=== PATIENT | female | born 1985 | race Caucasian/White ===

== ENCOUNTER 2016-12-15 18:49 | Inpatient (IN) | payer MEDICAID ==
[~2016-12-15] VITALS: Ht 165.1 cm; Wt 78.1 kg
[2016-12-15] MEDS ORDERED: MORPHINE SULFATE INJ 4 MG/ML DISP.SYRIN ONE ×2 (19:45→21:20)
[2016-12-15] MEDS ORDERED: IV SET PRIMARY 1 EA INFUS.SET MC ONE (19:46)
[2016-12-15] MEDS ORDERED: IV NS 0.9% 1,000 ML ONE (19:46)
[2016-12-15] MEDS ORDERED: ONDANSETRON HCL/PF 4 MG/2 ML VIAL ONE (19:46)
[2016-12-15 19:59] LABS: LYMPHOCYTES # (AUTO) 2.4 /CMM (0.8-4.8); MONOCYTES # (AUTO) 0.4 /CMM (0.1-1.30)
[2016-12-15 20:00] LABS: APPEARANCE,URINE Clear (CLEAR); BILIRUBIN,URINE Negative (NEGATIVE); BLOOD, URINE Negative Ery/uL (NEGATIVE); COLOR,URINE Yellow (YELLOW); KETONES,URINE Negative (NEGATIVE); LEUKOCYTE ESTERASE ,URINE Trace (NEGATIVE); NITRITE, URINE Negative (NEGATIVE); PROTEIN,URINE Negative (NEGATIVE); UGLUCOSE Negative (NEGATIVE)
[2016-12-15] MEDS ORDERED: ONDANSETRON HCL/PF 4 MG/2 ML VIAL IVP ONE (20:00)
[2016-12-15] MEDS ORDERED: IV NS 0.9% 1,000 ML BAG IV ONE (20:00)
[2016-12-15] MEDS ORDERED: MORPHINE SULFATE INJ 2 MG/ML DISP.SYRIN IV ONE ×2 (20:00→21:30)
[2016-12-15 20:01] LABS: CALCIUM, SERUM 8.2 mg/dL (8.5-10.1); CREATININE 0.7 mg/dL (0.6-1.3); POTASSIUM 4.2 mmol/L (3.5-5.1)
[2016-12-15 20:06] LABS: BASOPHILS % (AUTO) 0.6 % (0.0-2.0); EOSINOPHILS % (AUTO) 0.5 % (0.0-6.0); HEMATOCRIT 31 % (33-45); HEMOGLOBIN 9.2 g/dL (11.5-14.8); LYMPHOCYTES % (AUTO) 39.3 % (20.0-44.0); MEAN CORPUSCULAR HEMOGLOBIN 19 PG (26.0-33.0); MEAN CORPUSCULAR HGB CONC 30 g/dl (31.0-36.0); MEAN CORPUSCULAR VOLUME 63 fL (82-100); MONOCYTES % (AUTO) 7.4 % (2.0-12.0); NEUTROPHILS # (AUTO) 3.3 /CMM (1.8-8.9); NEUTROPHILS % (AUTO) 52.2 % (43.0-81.0); PLATELET COUNT (AUTO) 389 /CMM (150-450); RDW COEFFICIENT OF VARIATION 20.3 (11.5-15.0); RED BLOOD CELL COUNT(AUTO) 4.86 MIL/uL (4.0-5.2); WHITE BLOOD COUNT (AUTO) 6.1 K/uL (4.3-11.0)
[2016-12-15 20:08] LABS: ALBUMIN 3.5 g/dL (3.4-5.0); BILIRUBIN,DIRECT 0.1 mg/dL (0.0-0.2); BILIRUBIN,TOTAL 0.3 mg/dL (0.2-1.0); INR 0.98 (0.87-1.13); PROTHROMBIN TIME 10.2 SECS (9.5-12.7); TOTAL PROTEIN, SERUM 7.7 g/dL (6.4-8.2)
[2016-12-15] MEDS ORDERED: IV NS 0.9% 250 ML IV ONE (20:11)
[2016-12-15] MEDS ORDERED: IOHEXOL-300 100 ML VIAL IV ONE (20:11)
[2016-12-15 20:20] LABS: ADD URINE CULTURE NO; BACTERIA,URINE None seen /HPF (None Seen); RBC,URINE 0-2 /HPF (0-2); SQUAMOUS EPITHELIAL CELL,UR Few /HPF (None Seen)
[2016-12-15 20:34] LABS: PREGNANCY TEST URINE QUAL NEGATIVE (NEGATIVE)
[2016-12-15] MEDS ORDERED: LEVOFLOXACIN 500 MG /D5W 100ML 500 MG/100 ML PIGGYBACK IV ONE (22:00)
[2016-12-15] MEDS ORDERED: HYDROMORPHONE 1 MG/1 ML DISP.SYRIN IV ONE (22:00)
[2016-12-15] MEDS ORDERED: FLAGYL/NS RTU 500 MG/100 ML PIGGYBACK IV ONE (22:00)
[2016-12-15] MEDS ORDERED: ZOLPIDEM TARTRATE 5 MG TABLET PO PRN (23:00)
[2016-12-15] MEDS ORDERED: Z GUARD REMEDY 2 OZ OINT TP PRN (23:00)
[2016-12-15] MEDS ORDERED: ONDANSETRON HCL/PF 4 MG/2 ML VIAL IVP PRN (23:00)
[2016-12-15] MEDS ORDERED: HYDROCODONE/APAP 5/325MG 1 EACH TABLET PO PRN (23:00)
[2016-12-15] MEDS ORDERED: MAG HYDROX/AL HYDROX/SIMETH 30 ML UDC PO PRN (23:00)
[2016-12-15] MEDS ORDERED: MAGNESIUM HYDROXIDE 30 ML UDC PO PRN (23:00)
[2016-12-15] MEDS ORDERED: ACETAMINOPHEN 325 MG TABLET PO PRN (23:00)
[2016-12-16] VITALS (8 sets, daily range): BP systolic 117–135; BP diastolic 70–81
[2016-12-16] MEDS ORDERED: METRONIDAZOLE 500MG/ NS 100ML 100 ML IV ONE ×2 (00:31→07:12)
[2016-12-16] MEDS ORDERED: LEVOFLOXACIN 750 MG /D5W 150ML 150 ML IV ONE (00:32)
[2016-12-16] MEDS ORDERED: IV NS 0.9% 1,000 ML ONE (00:36)
[2016-12-16] MEDS ORDERED: IV SET PRIMARY PUMP SET 1 EA INFUS.SET MC ONE ×3 (00:36→12:10)
[2016-12-16] MEDS ORDERED: SECONDARY IV SET 1 EA INFUS.SET MC ONE ×2 (00:37→11:55)
[2016-12-16] MEDS: IV NS 0.9% 1,000 ML IV PRN (00:42)
[2016-12-16] MEDS: LEVOFLOXACIN 750 MG /D5W 150ML 750 MG in PREMIX 1 EA IV SCH ×2 (00:48→22:07)
[2016-12-16] MEDS ORDERED: MORPHINE SULFATE INJ 2 MG/ML DISP.SYRIN ONE ×2 (01:35→05:42)
[2016-12-16] MEDS: MORPHINE SULFATE INJ 2 MG/ML DISP.SYRIN IV PRN ×3 (01:43→09:47)
[2016-12-16] MEDS ORDERED: LEVE500T9 PO (02:01)
[2016-12-16] MEDS ORDERED: ALPR2TAB2 PO (02:01)
[2016-12-16] MEDS ORDERED: GABA800T2 PO (02:01)
[2016-12-16] MEDS ORDERED: ESCI20TA PO (02:01)
[2016-12-16] MEDS ORDERED: ONDA8TAB6 PO (02:04)
[2016-12-16] MEDS: METRONIDAZOLE 500MG/ NS 100ML 500 MG in PREMIX 1 EA IV SCH ×4 (02:20→17:25)
[2016-12-16 06:46] LABS: BASOPHILS % (AUTO) 0.2 % (0.0-2.0); EOSINOPHILS % (AUTO) 0.8 % (0.0-6.0); HEMATOCRIT 26 % (33-45); HEMOGLOBIN 8.1 g/dL (11.5-14.8); LYMPHOCYTES # (AUTO) 1.8 /CMM (0.8-4.8); LYMPHOCYTES % (AUTO) 31.1 % (20.0-44.0); MEAN CORPUSCULAR HEMOGLOBIN 19 PG (26.0-33.0); MEAN CORPUSCULAR HGB CONC 31 g/dl (31.0-36.0); MEAN CORPUSCULAR VOLUME 63 fL (82-100); MONOCYTES # (AUTO) 0.5 /CMM (0.1-1.30); NEUTROPHILS # (AUTO) 3.5 /CMM (1.8-8.9); NEUTROPHILS % (AUTO) 58.9 % (43.0-81.0); PLATELET COUNT (AUTO) 357 /CMM (150-450); RDW COEFFICIENT OF VARIATION 21.2 (11.5-15.0); RED BLOOD CELL COUNT(AUTO) 4.18 MIL/uL (4.0-5.2); WHITE BLOOD COUNT (AUTO) 5.9 K/uL (4.3-11.0)
[2016-12-16 06:58] LABS: RETICULOCYTE COUNT 1.6 % (0.6-2.5)
[2016-12-16] MEDS ORDERED: LEVONORGESTREL 1.5 MG PO ×2 (07:00)
[2016-12-16 07:10] LABS: CALCIUM, SERUM 8.2 mg/dL (8.5-10.1); CREATININE 0.6 mg/dL (0.6-1.3); MAGNESIUM 1.6 mg/dL (1.8-2.4); POTASSIUM 3.9 mmol/L (3.5-5.1)
[2016-12-16] MEDS ORDERED: HYDROMORPHONE 1 MG/1 ML DISP.SYRIN ONE (07:13)
[2016-12-16 07:23] LABS: THYROID STIMULATING HORMONE 0.713 uIU/mL (0.358-3.74)
[2016-12-16] MEDS ORDERED: OXYC30TA2 PO (07:40)
[2016-12-16] MEDS: PANTOPRAZOLE 40 MG TABLET.DR PO SCH (08:34)
[2016-12-16] MEDS: ALPRAZOLAM 1 MG TABLET PO SCH (12:06)
[2016-12-16] MEDS: GABAPENTIN 400 MG CAPSULE PO SCH ×2 (12:07→17:25)
[2016-12-16] MEDS: LEVETIRACETAM (250 MG) 250 MG TABLET PO SCH ×2 (12:07→21:34)
[2016-12-16] MEDS: oxyCODONE HCL SR 10MG TAB.SR.12H PO PRN (12:08)
[2016-12-16] MEDS: Magnesium 1GM/D5W 100ML PREMIX 100 ML IV SCH ×2 (12:08→13:28)
[2016-12-16] MEDS: HYDROMORPHONE 1 MG/1 ML DISP.SYRIN IV PRN ×2 (13:28→19:55)
[2016-12-16] MEDS: SOD FERRIC GLUC 125 MG in IV NS 0.9% 100 ML IV SCH (14:39)
[2016-12-16] MEDS: ONDANSETRON HCL/PF 4 MG/2 ML VIAL IVP PRN (19:56)
[2016-12-16] MEDS ORDERED: oxyCODONE HCL SR 10MG TAB.SR.12H PO PRN (21:00)
[2016-12-17] MEDS: oxyCODONE HCL SR 10MG TAB.SR.12H PO PRN ×4 (00:13→16:23)
[2016-12-17] MEDS: METRONIDAZOLE 500MG/ NS 100ML 500 MG in PREMIX 1 EA IV SCH ×3 (00:13→12:46)
[2016-12-17] MEDS: HYDROMORPHONE 1 MG/1 ML DISP.SYRIN IV PRN ×3 (01:59→15:03)
[2016-12-17] MEDS: IV NS 0.9% 1,000 ML IV PRN (05:28)
[2016-12-17] MEDS: ONDANSETRON HCL/PF 4 MG/2 ML VIAL IVP PRN (05:39)
[2016-12-17 06:21] LABS: BASOPHILS % (AUTO) 0.3 % (0.0-2.0); EOSINOPHILS # (AUTO) 0.1 /CMM (0.0-0.7); EOSINOPHILS % (AUTO) 1.8 % (0.0-6.0); HEMATOCRIT 26 % (33-45); LYMPHOCYTES # (AUTO) 1.6 /CMM (0.8-4.8); LYMPHOCYTES % (AUTO) 34.2 % (20.0-44.0); MEAN CORPUSCULAR HEMOGLOBIN 19 PG (26.0-33.0); MEAN CORPUSCULAR HGB CONC 30 g/dl (31.0-36.0); MEAN CORPUSCULAR VOLUME 63 fL (82-100); MONOCYTES # (AUTO) 0.5 /CMM (0.1-1.30); MONOCYTES % (AUTO) 11.3 % (2.0-12.0); NEUTROPHILS # (AUTO) 2.4 /CMM (1.8-8.9); NEUTROPHILS % (AUTO) 52.4 % (43.0-81.0); PLATELET COUNT (AUTO) 366 /CMM (150-450); RDW COEFFICIENT OF VARIATION 21.8 (11.5-15.0); RED BLOOD CELL COUNT(AUTO) 4.19 MIL/uL (4.0-5.2); WHITE BLOOD COUNT (AUTO) 4.6 K/uL (4.3-11.0)
[2016-12-17 06:30] LABS: CALCIUM, SERUM 8.2 mg/dL (8.5-10.1); CREATININE 0.8 mg/dL (0.6-1.3); MAGNESIUM 1.6 mg/dL (1.8-2.4); PHOSPHORUS 3.1 mg/dL (2.5-4.9); POTASSIUM 3.2 mmol/L (3.5-5.1)
[2016-12-17 07:38] LABS: EOSINOPHILS % (MANUAL) 2 % (0-4); LYMPHOCYTES % (MANUAL) 33 % (16-48); MONOCYTES % (MANUAL) 7 % (0-11.0); NEUTROPHILS % (MANUAL) 58 (42-76)
[2016-12-17 07:39] LABS: PLATELET ESTIMATE ADEQUATE
[2016-12-17 07:40] LABS: ANISOCYTOSIS 2+
[2016-12-17 07:41] LABS: HYPOCHROMASIA 2+
[2016-12-17 08:00] VITALS: BP 133/92
[2016-12-17 08:12] VITALS: BP 133/92
[2016-12-17] MEDS: PANTOPRAZOLE 40 MG TABLET.DR PO SCH (08:19)
[2016-12-17] MEDS: LEVETIRACETAM (250 MG) 250 MG TABLET PO SCH (08:19)
[2016-12-17] MEDS: ALPRAZOLAM 1 MG TABLET PO SCH (08:19)
[2016-12-17] MEDS: GABAPENTIN 400 MG CAPSULE PO SCH (08:20)
[2016-12-17] MEDS ORDERED: ESCITALOPRAM OXALATE (10 MG) 10 MG TABLET PO SCH (09:00)
[2016-12-17] MEDS: Magnesium 1GM/D5W 100ML PREMIX 100 ML IV SCH ×2 (10:58→12:45)
[2016-12-17] MEDS: POTASSIUM CHLORIDE 20 MEQ POWDER PACKET PO SCH ×2 (10:58→12:46)
[2016-12-17] MEDS ORDERED: LEVO500T15 PO (13:23)
[2016-12-17] MEDS ORDERED: METR500T PO (13:23)
[2016-12-17] MEDS: SOD FERRIC GLUC 125 MG in IV NS 0.9% 100 ML IV SCH (14:24)
[2016-12-17 16:00] VITALS: BP 145/84
== END 2016-12-17 16:25 | disposition home or self-care (01) | DRG 249 ==
LOC: ER 18:52 → MEDSG2 22:14
DX: K52.9 Noninfective gastroenteritis and colitis, unspecified (principal); R45.851 Suicidal ideations; D50.9 Iron deficiency anemia, unspecified; Z98.84 Bariatric surgery status; Z87.891 Personal history of nicotine dependence; Z90.49 Acquired absence of other specified parts of digestive tract; F41.9 Anxiety disorder, unspecified; Z04.41 Encounter for examination and observation following alleged adult rape
CPT/HCPCS: 36415; 80048-TC; 80061-TC; 80076-TC; 81000-TC; 83540-TC; 83615-TC; 83690-TC; 83735-TC; 84100-TC; 84443-TC; 84703-TC; 85025-TC; 85045-TC; 85730-TC; 87081-TC; A4216; A4606; J1170; J1956; J2270; J2405; J2916; J3475; J3490; J7030; J7050; Q9967; Z7610